=== PATIENT | male | born 1980 | race African-American/Black ===

== ENCOUNTER 2016-10-19 15:33 | Emergency (ER) | payer BC ==
[~2016-10-19] VITALS: Ht 180.3 cm; Wt 68.0 kg
[2016-10-19 15:41] VITALS: BP 105/64
--- NOTE | 2016-10-19 15:44 | NUR ---
36/M BIB SELF C/O HEADACHE , SORE THROAT & NAUSEA X THIS MORNING. DENIES V/D; SKIN IS PINK/WARM/DRY; AAOX4 WITH EVEN AND STEADY GAIT; LUNGS CLEAR BL; HR EVEN AND REGULAR; PT DENIES ANY FEVER, CP, SOB, OR COUGH AT THIS TIME; PATIENT STATES PAIN OF 6/10 AT THIS TIME; VSS; PATIENT POSITIONED FOR COMFORT; HOB ELEVATED; BEDRAILS UP X2; BED DOWN. ER MD MADE AWARE OF PT STATUS.
[2016-10-19 16:09] VITALS: BP 118/64
--- NOTE | 2016-10-19 16:09 | NUR ---
Patient discharged with v/s stable. Written and verbal after care instructions given and explained. Patient alert, oriented and verbalized understanding of instructions. Ambulatory with steady gait. All questions addressed prior to discharge. ID band removed. Patient advised to follow up with PMD. Rx of AUGMENTIN&MOTRIN given. Patient educated on indication of medication including possible reaction and side effects. Opportunity to ask questions provided and answered.
== END 2016-10-19 16:09 | disposition home or self-care (01) ==
LOC: MED 15:34
DX: J02.9 Acute pharyngitis, unspecified (principal)
CPT/HCPCS: 99283

== ENCOUNTER 2017-05-12 18:59 | Emergency (ER) | payer BC ==
[~2017-05-12] VITALS: Ht 182.9 cm; Wt 71.7 kg
[2017-05-12 19:08] VITALS: BP 143/58
--- NOTE | 2017-05-12 19:40 | NUR ---
PATIENT TAKEN TO OVERFLOW CHAIR 3.
--- NOTE | 2017-05-12 19:40 | NUR ---
PT PLACED IN OVERFLOW CHAIR 3.
--- NOTE | 2017-05-12 19:43 | NUR ---
PATIENT IS A 37 Y/O MALE WHO PRESENTS TO THE ED C/O HEADACHE. PT STATES, "I HAVE BEEN HAVING THIS HEADACHE AND VOMITING FOR ABOUT A DAY." PT REPORTS 10/10 POUNDING HEADACHE PAIN THAT DOES NOT RADIATE. PT DENIES CP, SOB, REPORTS VOMITING DENIES NAUSEA/DIARRHEA. PT AAOX4, RR EVEN/UNLABORED. PT REPOSITIONED FOR COMFORT, BED IN LOWEST POSITION. ER MD DR. BENITO NOTIFIED. WILL CONTINUE TO MONITOR.
--- NOTE | 2017-05-12 19:49 | NUR ---
Patient being evaluated by physician in overflow.
[2017-05-12] MEDS ORDERED: NACL 0.9% 2,000 ML IV ONE (19:50)
[2017-05-12] MEDS ORDERED: ONDANSETRON 4 MG/2 ML VIAL IVP ONE (19:50)
[2017-05-12] MEDS ORDERED: KETOROLAC 30 MG/ML VIAL IVP ONE (19:50)
--- NOTE | 2017-05-12 20:09 | NUR ---
Pt moved to bed 10.
[2017-05-12 20:24] LABS: BASOPHILS % (AUTO) 0.3 % (0.0-2.0); EOSINOPHILS % (AUTO) 0.4 % (0.0-4.0); HEMATOCRIT 43.2 % (36-52); HEMOGLOBIN 13.8 g/dL (12.0-18.0); LYMPHOCYTES # (AUTO) 0.3 K/uL (2.0-11.5); LYMPHOCYTES % (AUTO) 2.5 % (20.5-51.1); MEAN CORPUSCULAR HEMOGLOBIN 29 pg (27-31); MEAN CORPUSCULAR HGB CONC 32 g/dL (33-37); MEAN CORPUSCULAR VOLUME 91 fL (80-94); MONOCYTES # (AUTO) 0.8 K/uL (0.8-1.0); MONOCYTES % (AUTO) 6.6 % (1.7-9.3); NEUTROPHILS # (AUTO) 10.8 K/uL (1.8-7.7); PLATELET COUNT (AUTO) 218 K/uL (140-450); RED BLOOD CELL COUNT(AUTO) 4.76 MIL/uL (4.20-6.10); RED CELL DISTRIBUTION WIDTH 11.7 % (11.6-13.7); WHITE BLOOD COUNT (AUTO) 11.9 K/uL (4.8-10.8)
[2017-05-12 20:32] LABS: ANION GAP 16.5 (8-16); CARBON DIOXIDE 22.1 mmol/L (21-32); CREATININE 1.3 mg/dL (0.7-1.3); POTASSIUM 3.6 mmol/L (3.5-5.1)
[2017-05-12 20:38] LABS: ALBUMIN 3.9 g/dL (3.4-5.0); TOTAL BILIRUBIN 1.6 mg/dL (0.0-1.0)
[2017-05-12 20:50] LABS: NEUTROPHILS % (AUTO) 90.2 % (42.2-75.2)
--- NOTE | 2017-05-12 21:15 | NUR ---
PATIENT TAKEN TO CT VIA WHEELCHAIR.
--- NOTE | 2017-05-12 21:30 | NUR ---
PATIENT RETURN FROM CT
--- NOTE | 2017-05-12 22:14 | NUR ---
PATIENT D/C BY DR. BENITO.
[2017-05-12 22:15] VITALS: BP 137/62
== END 2017-05-12 22:15 | disposition home or self-care (01) ==
LOC: MED 18:59
DX: A08.4 Viral intestinal infection, unspecified (principal)
CPT/HCPCS: 36415; 74176; 80053; 83690; 85025; 96361; 96374; 96375; 99285; J1885; J2405; J7030